=== PATIENT | female | born 1975 | race African-American/Black ===

== ENCOUNTER 2025-01-07 07:11 | Emergency (ER) | payer MEDICAID, SELFPAY ==
--- NOTE | 2025-01-07 | ECG_ITS ---
Test Reason : PALPAITATION Blood Pressure : */* mmHG Vent. Rate : 77 BPM Atrial Rate : 77 BPM P-R Int : 220 ms QRS Dur : 70 ms QT Int : 358 ms P-R-T Axes : 81 88 87 degrees QTcB Int : 405 ms Sinus rhythm with 1st degree A-V block Otherwise normal ECG No previous ECGs available Referred By: Saumya Pike Electronically Signed By: VILLA MANZANO MD
--- NOTE | ~2025-01-07 | XR_ITS ---
CLINICAL HISTORY: cp 1 view chest x-ray Comparison: None provided Findings: There is no focal pneumonia. Normal size heart. No acute fracture. There is hyperaeration. IMPRESSION: There is hyperaeration. This document has been electronically signed by: Carlos Alberto Bateman MD on 01/07/2025 07:54:25
[2025-01-07 07:04] VITALS: BP 143/92; PULSE 83; O2SAT 100
[2025-01-07 07:11] VITALS: BP 120/85; PULSE 83; RESP 16; TEMP 36.8; O2SAT 98; BMI 16.7
[2025-01-07 07:15] VITALS: BP 124/86; PULSE 80; RESP 18; O2SAT 98
--- NOTE | 2025-01-07 07:27 | ED.ARRPALP ---
HPI - Arrhythmia/Palpitations General Chief Complaint: Arrhythmia/Palpitations Stated Complaint: PALPATATIONS/ANXIETY History of Present Illness HPI narrative: Patient is a 49-year-old female with a history of recreational cocaine use. Presented today with having palpitation. Patient also had chest tightness. History of anxiety patient feels this is similar to previous bouts of panic attacks. There is no chest pain. [place] very short of breath under lot of stress patient is from home admits to using cocaine last night. No history of stroke positive history of recreational drug use only. Positive history of smoking. No history of diabetes, hypertension, high cholesterol, mi, family history of [place]. did not use cocaine this morning. Related Data Allergies Allergy/AdvReac Type Severity Reaction Status Date / Time No Known Allergies Allergy Verified 01/07/25 07:13 Review of Systems Review of Systems: Positive shortness of breath Yes all other systems are reviewed and are negative [facility] Past Medical History Attestation statement: The following information was validated with the patient. Social History Social History Alcohol intake: current Smoked in Last 30 Days: Yes Substance Use Type: Crack/Cocaine and Marijuana Substance Use Frequency: Chronic Longstanding Advance Directives: No Advance Directives Information Provided: No Physical Exam Exam: Exam: Appearance: Alert. Oriented X3. No acute distress. Eyes: Pupils equal, round and reactive to light. ENT: Pharynx normal. Neck: Normal inspection. Neck supple. No lymph nodes noted. No crepitus CVS: Normal heart rate and rhythm. Pulses normal. Normal S1 and S2 Respiratory: No respiratory distress. Breath sounds normal. No Wheezing. No rales Abdomen: Soft and nontender. No rigidity. No distention. good BS x4 Skin: Skin warm and dry. Normal skin color. Normal skin turgor. Extremities: No lower extremity edema. Neurovascular intact to all extremities. No Lacerations. No Rash Neuro: Oriented X 3. No motor deficit. No sensory deficit. Moving all extermities. No slurred speech Vital Signs: Vital Signs: Last Vital Signs Temp 98.3 F 01/07/25 07:11 Pulse 80 01/07/25 07:15 Resp 18 01/07/25 07:15 BP 124/86 01/07/25 07:15 Pulse Ox 98 01/07/25 07:15 O2 Del Method Room Air 01/07/25 07:15 BMI result Body Mass Index 16.7 Medications Administered Discontinued Medications Generic Name Dose Route Start Last Admin Trade Name Greg PRN Reason Stop Dose Admin Lorazepam 1 mg 01/07/25 07:26 01/07/25 07:37 Lorazepam 1 Mg Tablet PO 01/07/25 07:27 1 mg ONCE ONE Administration Medical Decision Making Medical Decision Making [facility] Narrative: Patient well-appearing symptoms consistent with having panic attack. Will check 1 set enzyme Ativan was given. Explained to the patient to stop using cocaine. Patient states understanding. Did not want detox at this time. Patient's cardiac workup was negative troponin was negative symptoms resolved after a dose of Ativan has a ride home. Currently in stable condition. Her symptoms not consistent with ACS. Has a history of panic attack the symptoms felt very much the same. Explained to patient the need to stop using cocaine patient states understanding. Differential Diagnosis Differential Diagnoses: The differential diagnosis associated with the presentation includes Panic attack, ACS, recreational drug use Admission/Observation Consideration of admission/observation: Escalation of care including admission/observation considered Lab Data [facility] Lab Attestation statement: I reviewed the patient's lab results. 01/07/25 07:31 01/07/25 07:31 Labs: Lab Results 01/07/25 Range/Units 07:31 WBC 4.7 L (4.8-10.8) X10*3/uL RBC 3.89 L (4.20-5.50) X10*6/uL Hgb 10.8 L (12.0-16.0) g/dl Hct 33.9 L (37.0-47.0) % MCV 87.1 (80.0-98.0) fL MCH 27.8 (27.0-33.0) pg MCHC 31.9 (31.0-35.0) g/dl RDW 17.9 H (11.0-16.0) % Plt Count 189 (160-400) X10*3/uL MPV 11.4 (9.4-12.3) fL Immature Gran % (Auto) 0.2 (0.0-0.4) % Neut % (Auto) 40.3 L (45-73) % Lymph % (Auto) 45.8 H (20-40) % [place]ley % (Auto) 11.4 H (2-11) % Eos % (Auto) 1.7 (0-4) % Baso % (Auto) 0.6 (0-2) % Lymph # (Auto) 2.2 (1.2-4.9) X10*3/uL [place]ley # (Auto) 0.5 (0.1-1.2) X10*3/uL Eos # (Auto) 0.1 (0.0-0.4) X10*3/uL Baso # (Auto) 0.0 (0.0-0.2) X10*3/uL Abs Immat Gran (auto) 0.01 (0.00-0.03) X10*3/uL Absolute Neuts (auto) 1.9 L (2.0-8.3) x10*3/uL Absolute Nucleated RBC 0.000 (0.0-0.012) X10*3/uL Nucleated RBC % (auto) 0.0 (0.0-0.2) /100WBC Sodium 143 (135-145) mmol/L Potassium 3.5 (3.3-5.1) mmol/L Chloride 106 (96-108) mmol/L Carbon Dioxide 25 (22-29) mmol/L Anion Gap 16 (12-20) BUN 7 L (9-16) mg/dL Creatinine 0.60 (0.5-1.4) mg/dL Estim Creat Clear Calc 106.7 Estimated GFR > 60 Random Glucose 80 (60-115) mg/dL Calcium 8.7 (8.4-10.2) mg/dL Troponin I High Sens < 2.7 (<3.5-17.0) ng/L Beta HCG, Quant < 2 mIU/mL Independent Interpretation I performed an independent interpretation of an: EKG (Sinus heart rate is 80 MI QRS QT DC within normal limits there is no acute ST segment elevation.) Chronic Conditions Polysubstance abuse Social Determinants Patient?s care significantly limited by Social Determinants of Health including: Low income, Alcoholism and drug addiction in family and Problems related to primary support group Discharge Plan Discharge Clinical Impression: Anxiety, Polysubstance abuse Patient Disposition: Home, Self-Care Instructions: Generalized Anxiety Disorder (ED), Polysubstance Use Disorder (ED) Referrals: [facility] [Provider Group] - 01/11/25 Print Language: Amharic
[2025-01-07 07:36] LABS: MANUAL DIFF FLAG NO
[2025-01-07 07:39] LABS: Hematocrit 33.9 % (37.0-47.0); Hemoglobin 10.8 g/dl (12.0-16.0); Imm Gran Abs Auto 0.01 X10*3/uL (0.00-0.03); Imm Gran Pct Auto 0.2 % (0.0-0.4); Lymphocytes Absolute Auto 2.2 X10*3/uL (1.2-4.9); Mean Corpuscular HGB Conc 31.9 g/dl (31.0-35.0); Mean Corpuscular Hemoglobin 27.8 pg (27.0-33.0); Mean Corpuscular Volume 87.1 fL (80.0-98.0); NRBC Abs Auto 0.000 X10*3/uL (0.0-0.012); NRBC Pct Auto 0.0 /100WBC (0.0-0.2); Platelet Count 189 X10*3/uL (160-400); Red Blood Count 3.89 X10*6/uL (4.20-5.50); White Blood Count 4.7 X10*3/uL (4.8-10.8)
[2025-01-07 08:12] LABS: Troponin-I High Sensitivity < 2.7 ng/L (<3.5-17.0)
[2025-01-07 08:35] LABS: Anion Gap 16 (12-20); Blood Urea Nitrogen 7 mg/dL (9-16); Calcium 8.7 mg/dL (8.4-10.2); Carbon Dioxide 25 mmol/L (22-29); Chloride 106 mmol/L (96-108); Creatinine Clr Calc Pharmacy 106.7; Estimated Glomerular Filt Rate > 60; Potassium 3.5 mmol/L (3.3-5.1); Sodium 143 mmol/L (135-145)
--- NOTE | 2025-01-07 08:37 | PC.NURSE ---
Patient is a 49-year-old female with a history of recreational cocaine use. Presented today with having palpitation. Patient also had chest tightness. History of anxiety patient feels this is similar to previous bouts of panic attacks. [place] very short of breath under lot of stress patient is from home admits to using cocaine last night. Patient alert, emotional, periods of crying. Placed on alarm security or surveillance monitor and NSR noted. Lungs clear bilat. Respirations even and non-labored. Abdomen flat, soft, non-tender with positive bowel sounds. Positive pedal pulses with no edema.
[2025-01-07 10:48] VITALS: BP 99/68; PULSE 75; RESP 16; TEMP 36.8; O2SAT 99
[2025-01-07 11:01] VITALS: BP 99/68; PULSE 75; RESP 16; TEMP 36.8; O2SAT 99
== END 2025-01-07 11:02 | disposition home or self-care (01) ==
PROVIDERS: Emergency Provider Emergency Medicine Emergency Medical Services
DX: F41.1 Generalized anxiety disorder (principal); F14.90 Cocaine use, unspecified, uncomplicated; F12.90 Cannabis use, unspecified, uncomplicated; R06.02 Shortness of breath; Z87.891 Personal history of nicotine dependence
CPT/HCPCS: 36415; 71045; 80048; 84484; 84702; 85025; 93005; 99285

== ENCOUNTER → 2025-01-07 07:13 | Outpatient (BNV) | payer MEDICAID, SELFPAY | PROVIDERS: Emergency Provider Emergency Medicine Emergency Medical Services; Visit Provider Internal Medicine Cardiovascular Disease | DX: I44.0 Atrioventricular block, first degree (principal) | CPT/HCPCS: 93010 ==

== ENCOUNTER → 2025-01-07 07:26 | Outpatient (BNV) | payer MEDICAID, SELFPAY | PROVIDERS: Emergency Provider Emergency Medicine Emergency Medical Services; Visit Provider Radiology Diagnostic Radiology | DX: R07.9 Chest pain, unspecified (principal) | CPT/HCPCS: 71045 ==